=== PATIENT | male | born 1980 | race American Indian/Alaskan Native ===

== ENCOUNTER 2019-01-24 15:11 | Emergency (ER) | payer SELFPAY ==
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
[2019-01-24 16:41] LABS: Basophils % (Auto) 0.6 % (0.0-1.8); Eosinophils % (Auto) 0.1 % (0.0-4.3); Hematocrit 43.5 % (35.5-45.6); Lymphocytes # (Auto) 1.3 K/mm3 (1.2-5.4); Lymphocytes % (Auto) 25.4 % (13.4-35.0); Mean Corpuscular HGB Conc 35 % (32-34); Mean Corpuscular Volume 91 fl (84-94); Monocytes # (Auto) 0.3 K/mm3 (0.0-0.8); Monocytes % (Auto) 6.4 % (0.0-7.3); Platelet Count 182 K/mm3 (140-440); Red Blood Count 4.76 M/mm3 (3.65-5.03); Red Cell Distribution Width 13.6 % (13.2-15.2)
[2019-01-24] MEDS ORDERED: ULTRAM PO ONE (16:57)
[2019-01-24 17:05] LABS: Alanine Aminotransferase 8 units/L (7-56); Albumin 4.7 g/dL (3.9-5); BUN/Creatinine Ratio 19; Blood Urea Nitrogen 13 mg/dL (9-20); Calcium 9.9 mg/dL (8.4-10.2); Hemolysis Index 13
[2019-01-24 17:07] LABS: Bilirubin,Direct < 0.2 mg/dL (0-0.2)
[2019-01-24] MEDS ORDERED: TYLENOL ONE (22:51)
[2019-01-25] MEDS ORDERED: ATIVAN IM ONE (08:43)
[2019-01-25] MEDS: ULTRAM PO PRN (09:58)
[2019-01-25] MEDS: NEURONTIN PO PRN (09:58)
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
[2019-01-25] MEDS ORDERED: REMERON PO ONE (12:00)
[2019-01-25 14:48] LABS: Bilirubin,Urine NEG (Negative); Blood,Urine SM (Negative); Color,Urine Yellow (Yellow); Mucus,Urine FEW /HPF; Protein,Urine <15 mg/dL mg/dL (Negative); Urobilinogen,Urine < 2.0 mg/dL (<2.0)
[2019-01-25 14:55] LABS: Amphetamine Screen,Urine PRESUMPTIVE NEGATIVE; Benzodiazepines Screen,Urine PRESUMPTIVE NEGATIVE; Cocaine Screen,Urine PRESUMPTIVE NEGATIVE; Methadone Screen,Urine PRESUMPTIVE NEGATIVE; Opiate Screen,Urine PRESUMPTIVE NEGATIVE
[2019-01-25 15:17] LABS: Cannabinoid Screen,Urine PRESUMPTIVE POSITIVE
[2019-01-25] MEDS: REMERON PO SCH (22:13)
[2019-01-25] MEDS: MINIPRESS PO SCH (22:13)
[2019-01-26] MEDS: ULTRAM PO PRN ×3 (00:54→21:32)
[2019-01-26] MEDS: NEURONTIN PO PRN ×2 (14:38→21:32)
--- NOTE | 2019-01-26 18:35 | Progress Note ---
Subjective - Reason for Consult Consult date: 01/26/19 Reason for consult: follow up - Chief Complaint Chief complaint: "I'm about the same." 38 y.o. AA male who presented to the ER for SI's. Today the patient was calm and cooperative during the assessment. He stated that he is going through a lot with pain and dealing with symptoms of PTSD. 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 He continues to report chronic leg pain, anxiety, poor sleep, depression, suicidal ideation, and nightmares. He is open to inpatient psychiatric treatment. - Exam Narrative exam: MSE: Appearance: calm, cooperative Behavior: regular eye contact Speech: regular rate and tone Mood: "depressed' Affect: flat Thought Process: circumstantial Thought Content: denies Hi's and AVH's. Motor Activity: ambulatory Cognition: A/O x3 Insight: variable Judgment: poor Assessment and Plan Assessment and plan: Impression: MDD, Severe Type. PTSD. Today the patient was calm and cooperative during the assessment. The patient was positive for marijuana. DDx: R/O Bipolar DO Recommendation/Plan: Continue 1013. Continue Remeron 15 mg PO HS for de pression/PTSD and Prazosin 1 mg HS for PTSD symptoms. Discussed possible suicidality/medication induced brannon reference Remeron with patient, he verbalized understanding. Dispo: The patient was referred to inpatient psy services. will staff with Dr Yary Lopez. Mental Status Exam - Vital signs Last Vital Signs Temp 98.4 F 01/26/19 11:55 Pulse 108 H 01/26/19 11:55 Resp 20 01/26/19 11:55 BP 145/88 01/26/19 11:55 Pulse Ox 100 01/26/19 11:55
[2019-01-26] MEDS: REMERON PO SCH (22:36)
[2019-01-26] MEDS: MINIPRESS PO SCH (22:36)
[2019-01-27] MEDS: NEURONTIN PO PRN ×3 (09:00→22:28)
[2019-01-27] MEDS: ULTRAM PO PRN ×3 (09:00→22:28)
[2019-01-27] MEDS ORDERED: MELATONIN PO PRN (13:39)
--- NOTE | 2019-01-27 13:40 | Progress Note ---
Subjective - Reason for Consult Consult date: 01/27/19 Reason for consult: Pyshciatry Follow-up - Chief Complaint Chief complaint: "I'm not well" 38 y.o. AA male who presented to the ER for SI's. Today the patient was calm and cooperative during the assessment. He continue to endorsed SI's. He would not confirm or deny a suicide plan. He stated that he cannot sleep. He denies HI's and AVH's. He denies any side effects from his medications. Mental Status Exam - Vital signs Last Vital Signs Temp 98.3 F 01/27/19 08:00 Pulse 99 H 01/27/19 08:00 Resp 12 01/27/19 08:00 BP 126/93 01/27/19 08:00 Pulse Ox 100 01/27/19 08:00 - Exam Narrative exam: MSE: Appearance: calm, cooperative Behavior: regular eye contact Speech: regular rate and tone Mood: "depressed' Affect: flat Thought Process: circumstantial Thought Content: denies HI's and AVH's. Motor Activity: ambulatory Cognition: A/O x3 Insight: variable to fair Judgment: poor Assessment and Plan Impression: MDD, Severe Type. PTSD. Additional Dx: Insomnia. Today the patient was calm and cooperative during the assessment. The patient was positive for marijuana. DDx: R/O Bipolar DO Recommendation/Plan: Continue 1013. Remeron 15 mg PO HS for depression/PTSD, and Prazosin 1 mg HS for PTSD symptoms. Start Melatonin 5 mg PO HS PRN for sleep Discussed possible suicidality/medication induced brannon reference Remeron with patient, he verbalized understanding. Dispo: The patient was referred to inpatient psy services. Staffed with Dr Yary Lopez.
[2019-01-27] MEDS ORDERED: TYLENOL PO ONE (18:49)
[2019-01-27] MEDS ORDERED: TYLENOL ONE (18:50)
[2019-01-27] MEDS: REMERON PO SCH (22:28)
[2019-01-27] MEDS: MINIPRESS PO SCH (22:30)
[2019-01-28] MEDS: ULTRAM PO PRN ×2 (09:34→17:30)
[2019-01-28] MEDS: NEURONTIN PO PRN ×3 (09:34→21:59)
--- NOTE | 2019-01-28 11:03 | Progress Note ---
Subjective - Reason for Consult Consult date: 01/28/19 Reason for consult: Psychiatry Follow-up - Chief Complaint Chief complaint: "I got sleep" 38 y.o. AA male who presented to the ER for SI's. Today the patient was calm and cooperative during the assessment. He stated that he got more sleep last night. He stated that his SI's are somewhat decreasing at this time. The patient continue have a flat affect throughout the interview. He denies HI's and AVH's. He denies any side effects from his medications. Mental Status Exam - Vital signs Last Vital Signs Temp 97.5 F L 01/28/19 07:00 Pulse 70 01/28/19 07:00 Resp 18 01/28/19 07:00 BP 111/79 01/28/19 07:00 Pulse Ox 100 01/28/19 07:00 - Exam Narrative exam: MSE: Appearance: calm, cooperative Behavior: regular eye contact Speech: regular rate and tone Mood: "depressed' Affect: flat Thought Process: circumstantial Thought Content: denies HI's and AVH's. Motor Activity: ambulatory Cognition: A/O x3 Insight: variable to fair Judgment: poor Assessment and Plan Impression: MDD, Severe Type. PTSD. Additional Dx: Insomnia. Today the patient was calm and cooperative during the assessment. The patient was positive for marijuana. DDx: R/O Bipolar DO Recommendation/Plan: Continue 1013. Remeron 15 mg PO HS for depression/PTSD, Prazosin 1 mg HS for PTSD symptoms, and Melatonin 5 mg PO HS PRN for sleep Discussed possible suicidality/medication induced brannon reference Remeron with clifton lucio, he verbalized understanding. Dispo: The patient was referred to inpatient psy services. Will staff with Dr Yary Lopez.
[2019-01-28] MEDS ORDERED: COLACE PO ONE (18:57)
[2019-01-28] MEDS: MINIPRESS PO SCH (22:00)
[2019-01-28] MEDS: REMERON PO SCH (22:00)
[2019-01-29] MEDS: NEURONTIN PO PRN (10:09)
[2019-01-29] MEDS: ULTRAM PO PRN ×2 (10:09→16:47)
--- NOTE | 2019-01-29 11:17 | Progress Note ---
Subjective - Reason for Consult Consult date: 01/29/19 Reason for consult: Psychiatry Follow-up - Chief Complaint Chief complaint: "Hello" 38 y.o. AA male who presented to the ER for SI's. Today the patient was calm and cooperative during the assessment. He was informed that he was accepted at [facility], he stated, "I need the help." He would not confirm or deny SI's when asked. He denies HI's and AVH's. He denies HI's and AVH's. He denies any side effects from his medications. Mental Status Exam - Vital signs Last Vital Signs Temp 97.6 F 01/29/19 10:00 Pulse 86 01/29/19 10:00 Resp 16 01/29/19 10:00 BP 134/86 01/29/19 10:00 Pulse Ox 100 01/29/19 10:00 - Exam Narrative exam: MSE: Appearance: calm, cooperative Behavior: regular eye contact Speech: regular rate and tone Mood: "okay" Affect: congruent to mood Thought Process: circumstantial Thought Content: denies HI's and AVH's. Motor Activity: ambulatory Cognition: A/O x3 Insight: variable to fair Judgment: poor Assessment and Plan Impression: MDD, Severe Type. PTSD. Additional Dx: Insomnia. Today the patient was calm and cooperative during the assessment. The patient was positive for marijuana. DDx: R/O Bipolar DO Recommendation/Plan: Continue 1013. Remeron 15 mg PO HS for depression/PTSD, Prazosin 1 mg HS for PTSD symptoms, and Melatonin 5 mg PO HS PRN for sleep Discussed possible suicidality/medication induced brannon reference Remeron with patient, he verbalized understanding. Dispo: The patient was accepted at [facility] for inpatient psy services pending transport time. Will staff with Dr Yary Lopez.
[2019-01-29] MEDS: MINIPRESS PO SCH (22:27)
[2019-01-29] MEDS: REMERON PO SCH (22:27)
[2019-01-30] MEDS: ULTRAM PO PRN ×3 (03:39→15:42)
[2019-01-30] MEDS: NEURONTIN PO PRN ×2 (09:26→15:42)
[2019-01-30 09:51] VITALS: BP 118/80
--- NOTE | 2019-01-30 11:01 | Progress Note ---
Subjective - Reason for Consult Consult date: 01/30/19 Reason for consult: Psychiatric Follow-up Evaluation - Chief Complaint Chief complaint: "Okay I guess" Patient is a 38 y.o. AA male who presented to the ER for SI's. Today the patient is calm and cooperative during the assessment. He endorses intermittent SI's with plan to hang self. He endorses decrease sleep and appropriate appetite. He believes that others are out to get him. He denies HI's and AVH's. He denies any side effects from his medications. Patient pending transport time to [facility]. Mental Status Exam - Vital signs Last Vital Signs Temp 97.9 F 01/30/19 09:00 Pulse 78 01/30/19 09:00 Resp 18 01/30/19 09:28 BP 118/80 01/30/19 09:00 Pulse Ox 99 01/30/19 09:00 - Exam Narrative exam: Mental Status Exam Appearance: calm, cooperative Behavior: regular eye contact Speech: regular rate and tone Mood: "okay"; depressed Affect: congruent to mood Thought Process: circumstantial Thought Content: denies HI's and AVH's; + delusions. Motor Activity: ambulatory Cognition: A/O x 3 Insight: variable to fair Judgment: poor Assessment and Plan Impression: MDD, Severe Type. PTSD. Additional Dx: Insomnia. Today the patient is calm and cooperative during the assessment. The patient was positive for marijuana. Endorses intermittent SI's with plan to hang self. DDx: R/O Bipolar DO Recommendation/Plan: 1. Continue 1013. 2. Continue Remeron 15 mg PO HS for depression/PTSD, Prazosin 1 mg HS for PTSD symptoms, and Melatonin 5 mg PO HS PRN for sleep Discussed possible suicidality /medication induced brannon reference Remeron with patient, he verbalized understanding. Disposition: The patient has been accepted at [facility] for inpatient psychiatric services . Pending transport time. Will staff with Dr. Yary Lopez.
== END 2019-01-30 16:07 ==
LOC: ED 15:11 → EEVIPCON 15:11 → ED 01-30 16:07
DX: F32.9 Major depressive disorder, single episode, unspecified (principal); F12.90 Cannabis use, unspecified, uncomplicated
CPT/HCPCS: 36415; 80048; 80076; 80307; 81001; 85025; 96372; 99285; J2060; 80320; G0480